=== PATIENT | female | born 1960 | race Caucasian/White ===

== ENCOUNTER 2018-10-13 14:03 | Emergency (ER) | payer MEDICAID ==
[~2018-10-13] VITALS: Ht 162.6 cm; Wt 54.5 kg
[2018-10-13] MEDS ORDERED: SOD CHLORIDE 0.9% 1,000 ML IV STA (14:10)
[2018-10-13] MEDS ORDERED: morphine 4 MG/ML VIAL IV STA (14:10)
[2018-10-13] MEDS ORDERED: ONDANSETRON 4 MG INJ IV STA (14:10)
[2018-10-13 14:14] VITALS: Ht 162.6 cm; Wt 54.5 kg
[2018-10-13] MEDS ORDERED: [UNRECOGNIZED DRUG - REMARK] PO (15:19)
[2018-10-13] MEDS ORDERED: [UNRECOGNIZED DRUG - OTHER] PO (15:20)
[2018-10-13 17:00] VITALS: BP 128/82; PULSE 74; RESP 18
[2018-10-13] MEDS ORDERED: ONDA4TAB14 PO (17:00)
[2018-10-13] MEDS ORDERED: IBUP-1542 PO (17:00)
--- NOTE | 2018-10-13 17:53 | ERD ---
ER Documentation Chief Complaint Chief Complaint right upper quad pain 2 wk. no n/v HPI Patient is a 58-year-old female with gallstones who presents with abdominal pain. The patient was brought in by ambulance. The patient has right upper quadrant abdominal pain over the past 2 weeks. She has a history of gallstones. She has no fevers. She has nausea but no vomiting. The pain comes and goes and is sharp in nature. Upon review of old medical records this was the patient's first visit to the emergency department. She does not currently have a primary doctor. ROS All systems reviewed and are negative except as per history of present illness. Medications Home Meds Active Scripts Ondansetron (Ondansetron Odt) 4 Mg Tab.rapdis, 4 MG PO Q6H PRN for NAUSEA AND/OR VOMITING, #10 TAB Prov:DEE JONES MD 10/13/18 Ibuprofen* (Motrin*) 600 Mg Tab, 600 MG PO Q6H PRN for PAIN AND OR ELEVATED TEMP, #30 TAB Prov:DEE JONES MD 10/13/18 Reported Medications [Nausea Meds.] No Conflict Check, 1 TAB PO NEEDED 10/13/18 [Pain Medic.] No Conflict Check, 1 TAB PO NEEDED 10/13/18 Allergies Allergies: Coded Allergies: No Known Allergy (Unverified , 10/13/18) PMhx/Soc Gallstones Medical and Surgical Hx: pt denies Surgical Hx History of Surgery: No Anesthesia Reaction: No Hx Neurological Disorder: No Hx Respiratory Disorders: No Hx Cardiac Disorders: No Hx Psychiatric Problems: No Hx Miscellaneous Medical Probl: No Hx Alcohol Use: No Hx Substance Use: No Hx Tobacco Use: No Smoking Status: Never smoker FmHx Family History: No diabetes Physical Exam Vitals Vital Signs Date Temp Pulse Resp B/P (MAP) Pulse Ox O2 O2 Flow FiO2 Time Delivery Rate 10/13/18 74 18 128/82 98 Room Air 17:00 (97) 10/13/18 72 16 137/78 98 Room Air 15:50 (97) 10/13/18 98.4 79 18 152/91 98 14:14 (111) Physical Exam Const: No acute distress Head: Atraumatic Eyes: Normal Conjunctiva ENT: Normal External Ears, Nose and Mouth. Neck: Full range of motion. No meningismus. Resp: Clear to auscultation bilaterally Cardio: Regular rate and rhythm, no murmurs Abd: Soft, right upper quadrant tenderness to palpation without rebound or guarding Skin: No petechiae or rashes Back: No midline or flank tenderness Ext: No cyanosis, or edema Neur: Awake and alert Psych: Normal Mood and Affect Result Diagram: 10/13/18 1430 10/13/18 1430 Results 24 hrs Laboratory Tests Test 10/13/18 14:30 White Blood Count 8.5 10^3/ul Red Blood Count 4.60 10^6/ul Hemoglobin 14.3 g/dl Hematocrit 42.0 % Mean Corpuscular Volume 91.3 fl Mean Corpuscular Hemoglobin 31.1 pg Mean Corpuscular Hemoglobin Concent 34.0 g/dl Red Cell Distribution Width 12.0 % Platelet Count 154 10^3/UL Mean Platelet Volume 13.4 fl Immature Granulocytes % 0.200 % Neutrophils % 69.5 % Lymphocytes % 23.2 % Monocytes % 6.0 % Eosinophils % 0.5 % Basophils % 0.6 % Nucleated Red Blood Cells % 0.0 /100WBC Immature Granulocytes # 0.020 10^3/ul Neutrophils # 5.9 10^3/ul Lymphocytes # 2.0 10^3/ul Monocytes # 0.5 10^3/ul Eosinophils # 0.0 10^3/ul Basophils # 0.1 10^3/ul Nucleated Red Blood Cells # 0.0 10^3/ul Urine Color STRAW Urine Clarity CLEAR Urine pH 8.0 Urine Specific [place] 1.005 Urine Ketones NEGATIVE mg/dL Urine Nitrite NEGATIVE mg/dL Urine Bilirubin NEGATIVE mg/dL Urine Urobilinogen NEGATIVE mg/dL Urine Leukocyte Esterase NEGATIVE Anh/ul Urine Hemoglobin NEGATIVE mg/dL Urine Glucose NEGATIVE mg/dL Urine Total Protein NEGATIVE mg/dl Sodium Level 143 mmol/L Potassium Level 3.6 mmol/L Chloride Level 101 mmol/L Carbon Dioxide Level 29 mmol/L Anion Gap 13 Blood Urea Nitrogen 16 mg/dl Creatinine 0.62 mg/dl Est Glomerular Filtrat Rate mL/min > 60 mL/min Glucose Level 121 mg/dl Calcium Level 9.8 mg/dl Total Bilirubin 0.6 mg/dl Direct Bilirubin 0.00 mg/dl Indirect Bilirubin 0.6 mg/dl Aspartate Amino Transf (AST/SGOT) 76 IU/L Alanine Aminotransferase (ALT/SGPT) 32 IU/L Alkaline Phosphatase 93 IU/L Total Protein 9.2 g/dl Albumin 5.0 g/dl Globulin 4.20 g/dl Albumin/Globulin Ratio 1.19 Lipase 117 U/L Current Medications Medications Dose Sig/Simone Start Time Status Last (Trade) Ordered Route PRN Stop Time Admin Dose Reason Admin Sodium 1,000 ml @ Q1H STAT 10/13/18 DC 10/13/18 Chloride 1,000 mls/hr IV 14:10 10/13/18 14:26 15:09 Morphine 4 mg ONCE STAT 10/13/18 DC 10/13/18 Sulfate IV 14:10 10/13/18 14:26 (morphine) 14:11 Ondansetron 4 mg ONCE STAT 10/13/18 DC 10/13/18 HCl (Zofran IV 14:10 10/13/18 14:26 Inj) 14:11 Procedures/MDM Ultrasound of the gallbladder shows stones but no cholecystitis per radiology. Patient is a 58-year-old female who presents with what appears to be acute biliary colic. LFTs and lipase are normal. Ultrasound shows stones but no cholecystitis. At this point I doubt cholecystitis, pancreatitis, appendicitis, or bowel obstruction. I believe outpatient management is appropriate but the patient will need close follow-up with Dr. Desouza from general surgery with a surgeon of her choice for elective cholecystectomy over the next 2 weeks. The patient can return for any worsening symptoms. She can take ibuprofen or Zofran as needed for symptomatic relief. Departure Diagnosis: Primary Impression: Biliary colic Additional Impression: Abdominal pain Abdominal location: right upper quadrant Qualified Codes: R10.11 - Right upper quadrant pain Condition: Fair Patient Instructions: Biliary Colic With Gallstone (Confirmed) Referrals: WENDY DESOUZA MD Additional Instructions: Specialist:Usted tiene angelo condicin mdica que requiere que kerry a un especial ista dentro de los prximos 1-2 de la torre.POR FAVOR,CON [place]AM[place]A SEGUIMIENTO DE PRIMARIA PHSICIAN refferal. SI USTED NO TIENE UN MDICO GENERAL Y / O USTED NO PUEDE PAGAR chary a un mdico,los siguientes smith RECURSOS sido suministrado a usted. ES ZAMORA RESPONSABILIDAD PARA SER VISTOS POR EL ESPECIALISTA: DEE JONES MD Oct 13, 2018 17:53
== END 2018-10-13 17:48 | disposition home or self-care (01) ==
LOC: E/R 14:03
DX: K80.20 Calculus of gallbladder without cholecystitis without obstruction (principal)
CPT/HCPCS: 76705; 80053; 81003; 83690; 85025; J2270; J2405; J7030; 96361; 96374; 96375